=== PATIENT | male | born 1970 | race Caucasian/White ===

== ENCOUNTER 2017-06-08 22:11 | Emergency (ER) | payer OTHER ==
[2017-06-08] MEDS ORDERED: Sodium Chloride 0.9% 10 ML Syringe FLUSH PRN (22:13)
[2017-06-08] MEDS ORDERED: Nitroglycerin 0.4 MG Tab.SL SL ONE (22:15)
[2017-06-08] MEDS ORDERED: GI Cocktail Oral Solution 30 ML PO ONE (22:18)
[2017-06-08 22:42] LABS: CHLORIDE,CL 104 mmol/L (98-107); SODIUM,NA 139 mmol/L (136-145)
[2017-06-08] MEDS ORDERED: Pantoprazole 40 MG Vial IVPUSH ONE (23:30)
--- NOTE | 2017-06-09 | EDM.PDOC ---
ED HPI GENERAL MEDICAL PROBLEM - General Chief Complaint: Chest Pain Stated Complaint: chest pain Time Seen by Provider: 06/08/17 22:12 Source of Information: Reports: Patient History Limitations: Reports: No Limitations - History of Present Illness INITIAL COMMENTS - FREE TEXT/NARRATIVE: Patient comes to ER complaining of central chest pain. Points to epigastric area as site of pain. No radiation of pain, but says that intermittently he feels 'numb' in neck and right arm. Pain comes and goes, can be sharp, crampy. Eating and drinking make it worse. Laying down makes it worse, sitting straight up makes it better. Has not been able to burp. Breathing can make pain feel worse and gives a SOB sensation at times. No family history of CAD/LA. Patient denies any significant family history. Patient denies cardiac history. No fevers. Non-smoker. Has been diagnosed with hiatal hernia and GERD. Had similar episode several years ago. Denies other GI changes such as nausea/emesis/loose stools/constipation Chest Pain Score (Numeric/FACES): 5 - Related Data Allergies Allergy/AdvReac Type Severity Reaction Status Date / Time metaxalone [From Skelaxin] Allergy Rash Verified 06/08/17 22:12 Home Meds: Home Meds Albuterol [Proventil HFA] 2 puff INH Q4H PRN #1 inhaler 06/04/14 [Rx] Budesonide/Formoterol [Symbicort 160-4.5 MCG] 1 puff INH DAILY 06/08/17 [History ] FLUoxetine HCl [Fluoxetine HCl] 10 mg PO DAILY 06/08/17 [History] Ibuprofen 1,000 mg PO DAILY 06/08/17 [History] Loratadine [Claritin] 10 mg PO DAILY 06/08/17 [History] Omeprazole 20 mg PO DAILY 06/08/17 [History] Sucralfate [Carafate] 1 tab PO TIDAC 06/08/17 [History] buPROPion HCl [Wellbutrin Xl] 300 mg PO DAILY 06/08/17 [History] Past Medical History Cardiovascular History: Reports: Hypertension Respiratory History: Reports: Asthma Gastrointestinal History: Reports: GERD, Hiatal Hernia Psychiatric History: Reports: Anxiety, Depression Endocrine/Metabolic History: Reports: Obesity/BMI 30+ Social & Family History - Tobacco Use Smoking Status *Q: Current Every Day Smoker Years of Tobacco use: 30 Used Tobacco, but Quit: No Second Hand Smoke Exposure: No - Alcohol Use Days Per Week of Alcohol Use: 2 Number of Drinks Per Day: 2 Total Drinks Per Week: 4 - Recreational Drug Use Recreational Drug Use: Yes Drug Use in Last 12 Months: No Recreational Drug Type: Reports: Marijuana/Hashish Recreational Drug Use Frequency: Not Used In Over 6 Months Recreational Drug Last Use: 3 sodas per day, 2 cups of coffee per day - Living Situation & Occupation Living situation: Reports: Occupation: Employed ED ROS GENERAL - Review of Systems Review Of Systems: See Below Constitutional: Reports: Diaphoresis, Decreased Appetite. Denies: Fever, Chills , Malaise, Weakness, Fatigue, Night Sweats, Weight Loss, Weight Gain HEENT: Reports: No Symptoms Respiratory: Reports: Other (breathing makes epigastric discomfort worse at times. ). Denies: Shortness of Breath, Wheezing, Pleuritic Chest Pain, Cough, Sputum, Hemoptysis Cardiovascular: Reports: Chest Pain. Denies: Dyspnea on Exertion, Edema, Lightheadedness, Orthopnea, Palpitations, PND, Syncope Endocrine: Reports: No Symptoms GI/Abdominal: Reports: Abdominal Pain (epigastric pain), Decreased Appetite. Denies: Anorexia, Black Stool, Bloody Stool, Constipation, Diarrhea, Difficulty Swallowing, Distension, Hematemesis, Hematochezia, Nausea, Vomiting : Reports: No Symptoms Musculoskeletal: Reports: No Symptoms Skin: Reports: No Symptoms Neurological: Reports: No Symptoms Psychiatric: Reports: No Symptoms Hematologic/Lymphatic: Reports: No Symptoms ED EXAM, GENERAL - Physical Exam Exam: See Below Exam Limited By: No Limitations General Appearance: Alert, WD/WN, Moderate Distress, Obese Eye Exam: Bilateral Eye: EOMI, PERRL Ears: Normal External Exam, Normal Canal, Hearing Grossly Normal, Normal TMs Nose: Normal Inspection, Normal Mucosa, No Blood Throat/Mouth: Normal Inspection, Normal Lips, Normal Teeth, Normal Gums, Normal Oropharynx, Normal Voice, No Airway Compromise Head: Atraumatic, Normocephalic Neck: Normal Inspection, Supple, Non-Tender, Full Range of Motion. No: Carotid Bruit, Lymphadenopathy (L), Lymphadenopathy (R) Respiratory/Chest: No Respiratory Distress, Lungs Clear, Normal Breath Sounds, No Accessory Muscle Use, Chest Non-Tender Cardiovascular: Normal Peripheral Pulses, Regular Rate, Rhythm, No Edema, No Murmur Peripheral Pulses: 2+: Radial (L), Radial (R), Dorsalis Pedis (L), Dorsalis Pedis (R) GI/Abdominal: Normal Bowel Sounds, Soft, No Distention, Tender (epigastrum). No : Guarding, Rigid, Rebound (Male) Exam: Deferred Rectal (Males) Exam: Deferred Back Exam: Normal Inspection, Full Range of Motion. No: CVA Tenderness (L), CVA Tenderness (R), Paraspinal Tenderness, Vertebral Tenderness Extremities: Normal Inspection, Normal Range of Motion, Non-Tender, No Pedal Edema, Normal Capillary Refill Neurological: Alert, Oriented, Normal Cognition, Normal Gait, Normal Reflexes, No Motor/Sensory Deficits Psychiatric: Normal Affect, Normal Mood Skin Exam: Warm, Dry, Intact, Normal Color EKG INTERPRETATION EKG Date: 06/08/17 Time: 22:07 Rhythm: NSR Rate (Beats/Min): 69 [place]: Normal P-Wave: Present QRS: Normal ST-T: Normal QT: Normal Comparison: No Change Course - Vital Signs Last Recorded V/S: Last Vital Signs Temp Pulse Resp BP 146/94 H 06/08/17 22:25 Pulse Ox - Orders/Labs/Meds Orders: Active Orders 24 hr Category Date Time Status EKG Documentation Completion [RC] ASDIRECTED Care 06/08/17 22:15 Active Abdomen 2V AP Flat Upright [CR] Stat Exams 06/08/17 22:13 Taken Chest 2V [CR] Stat Exams 06/08/17 22:13 Taken Sodium Chloride 0.9% [Saline Flush] Med 06/08/17 22:13 Active 10 ml FLUSH ASDIRECTED PRN Saline Lock Insert [OM.PC] Stat Oth 06/08/17 22:13 Ordered Medication Orders Sodium Chloride (Saline Flush) 10 ml FLUSH ASDIRECTED PRN PRN Reason: Keep Vein Open Labs: Laboratory Tests 06/08/17 06/08/17 06/08/17 Range/Units 22:10 22:10 22:10 WBC 11.3 H (4.0-10.2) K/uL RBC 4.99 (4.33-5.41) M/uL Hgb 14.7 (13.1-16.8) g/dL Hct 43.7 (39.0-49.0) % MCV 87.6 D (84.0-98.0) fL MCH 29.5 (28.2-33.3) pg MCHC 33.6 (31.7-36.0) g/dL RDW 14.2 H (11.2-14.1) % Plt Count 328 D (150-350) K/uL Neut % (Auto) 55.3 (45.0-80.0) % Lymph % (Auto) 32.2 (10.0-50.0) % [place] % (Auto) 10.2 (2.0-14.0) % Eos % (Auto) 1.9 (0.0-5.0) % Baso % (Auto) 0.4 (0.0-2.0) % Neut # (Auto) 6.25 (1.40-7.00) K/uL Lymph # (Auto) 3.65 H (0.50-3.50) K/uL [place] # (Auto) 1.15 H (0.00-1.00) K/uL Eos # (Auto) 0.22 (0.00-0.50) K/uL Baso # (Auto) 0.05 (0.00-0.20) K/uL D-Dimer, Quantitative < 100 (0-400) ng/mL Sodium 139 (136-145) mmol/L Potassium 4.1 (3.5-5.1) mmol/L Chloride 104 (98-107) mmol/L Carbon Dioxide 24.9 (21.0-32.0) mmol/L BUN 21 H (7-18) mg/dL Creatinine 1.03 (0.51-1.17) mg/dL Est Cr Clr Drug Dosing 90.56 mL/min Estimated GFR (MDRD) > 60 mL/min Glucose 114 H (74-106) mg/dL Calcium 8.7 (8.5-10.1) mg/dL Total Bilirubin 0.3 (0.2-1.0) mg/dL AST 20 (15-37) U/L ALT 35 (12-78) U/L Alkaline Phosphatase 88 (46-116) IU/L Creatine Kinase 258 (26-308) U/L Creatine Kinase Index 0.1 (0.0-2.5) % CK-MB (CK-2) 0.30 (0.00-3.60) ng/mL Troponin I 0.000 (0.000-0.056) ng/mL Total Protein 7.6 (6.4-8.2) g/dL Albumin 3.8 (3.4-5.0) g/dL Specimen Type Urine Color Urine Appearance Urine pH (5.0-9.0) Ur Specific [place] (1.005-1.030) Urine Protein (NEGATIVE) mg/dL Urine Glucose (UA) (NEGATIVE) mg/dL Urine Ketones (NEGATIVE) mg/dL Urine Occult Blood (NEGATIVE) Urine Nitrite (NEGATIVE) Urine Bilirubin (NEGATIVE) Urine Urobilinogen (0.2-1.0) E.U./dL Ur Leukocyte Esterase (NEGATIVE) Urine RBC /HPF Urine WBC /HPF Ur Epithelial Cells /LPF Urine Bacteria (NONE TO FEW) /HPF 06/08/17 Range/Units 22:40 WBC (4.0-10.2) K/uL RBC (4.33-5.41) M/uL Hgb (13.1-16.8) g/dL Hct (39.0-49.0) % MCV (84.0-98.0) fL MCH (28.2-33.3) pg MCHC (31.7-36.0) g/dL RDW (11.2-14.1) % Plt Count (150-350) K/uL Neut % (Auto) (45.0-80.0) % Lymph % (Auto) (10.0-50.0) % [place] % (Auto) (2.0-14.0) % Eos % (Auto) (0.0-5.0) % Baso % (Auto) (0.0-2.0) % Neut # (Auto) (1.40-7.00) K/uL Lymph # (Auto) (0.50-3.50) K/uL [place] # (Auto) (0.00-1.00) K/uL Eos # (Auto) (0.00-0.50) K/uL Baso # (Auto) (0.00-0.20) K/uL D-Dimer, Quantitative (0-400) ng/mL Sodium (136-145) mmol/L Potassium (3.5-5.1) mmol/L Chloride (98-107) mmol/L Carbon Dioxide (21.0-32.0) mmol/L BUN (7-18) mg/dL Creatinine (0.51-1.17) mg/dL Est Cr Clr Drug Dosing mL/min Estimated GFR (MDRD) mL/min Glucose (74-106) mg/dL Calcium (8.5-10.1) mg/dL Total Bilirubin (0.2-1.0) mg/dL AST (15-37) U/L ALT (12-78) U/L Alkaline Phosphatase (46-116) IU/L Creatine Kinase (26-308) U/L Creatine Kinase Index (0.0-2.5) % CK-MB (CK-2) (0.00-3.60) ng/mL Troponin I (0.000-0.056) ng/mL Total Protein (6.4-8.2) g/dL Albumin (3.4-5.0) g/dL Specimen Type Urinvoid Urine Color Yellow Urine Appearance Clear Urine pH 5.5 (5.0-9.0) Ur Specific [place] >= 1.030 (1.005-1.030) Urine Protein Trace H (NEGATIVE) mg/dL Urine Glucose (UA) 250 H (NEGATIVE) mg/dL Urine Ketones Negative (NEGATIVE) mg/dL Urine Occult Blood Negative (NEGATIVE) Urine Nitrite Negative (NEGATIVE) Urine Bilirubin Negative (NEGATIVE) Urine Urobilinogen 0.2 (0.2-1.0) E.U./dL Ur Leukocyte Esterase Negative (NEGATIVE) Urine RBC 0-5 /HPF Urine WBC 0-5 /HPF Ur Epithelial Cells Rare /LPF Urine Bacteria Rare (NONE TO FEW) /HPF Meds: Medications Generic Name Dose Route Start Last Admin Trade Name Freq PRN Reason Stop Dose Admin Sodium Chloride 10 ml 06/08/17 22:13 Saline Flush FLUSH ASDIRECTED PRN Keep Vein Open Discontinued Medications Generic Name Dose Route Start Last Admin Trade Name Freq PRN Reason Stop Dose Admin Al Hydroxide/Mg Hydroxide 30 ml 06/08/17 22:18 06/08/17 22:41 Gi Cocktail PO 06/08/17 22:19 30 ml ONETIME ONE Administration Nitroglycerin 0.4 mg 06/08/17 22:15 06/08/17 22:25 Nitrostat SL 06/08/17 22:16 0.4 mg ONETIME ONE Administration Pantoprazole Sodium Confirm 06/09/17 00:14 Protonix Iv Administered 06/09/17 00:15 Dose 40 mg .ROUTE .STK-MED ONE - Radiology Interpretation Free Text/Narrative:: Chest xray did not show pneumothorax. Heart normal size. No focal infiltrates. Some mild changes suggestive of atelectasis/fibrosis. Abdominal film shows diffuse stool throughout. No sign of obstruction. - Re-Assessments/Exams Free Text/Narrative Re-Assessment/Exam: 06/09/17 00:40 Nitro given. Some reduction in pain noted. GI cocktail then given and patient had complete resolution of pain. EKG unremarkable for ischemia. DDimer/CKMB/Troponin negative. Suspect GI cause for pain. Long discussion with patient concerning dietary triggers for GERD and avoidance of future episodes similar to today's. Patient refused to stay for cardiac rule out protocol, however at this time differential diagnosis strongly favors GERD/Hiatal Hernia as source of pain. Extensive precautions reviewed prior to discharge. Patient is comfortable with plan and agrees to return if pain returns. Departure - Departure Time of Disposition: 23:56 Disposition: Home, Self-Care 01 Condition: Good Clinical Impression: Epigastric pain, Hiatal hernia GERD (gastroesophageal reflux disease) Qualifiers: Esophagitis presence: esophagitis presence not specified Qualified Code(s): K21.9 - Gastro-esophageal reflux disease without esophagitis Instructions: Indigestion, [id number], Hiatal Hernia Referrals: Hallie Ann PA [Primary Care Provider] - Forms: ED Department Discharge, ED Return to Work/School Form Additional Instructions: Follow up as needed if pain/problems return Strongly recommend dietary changes as discussed to help avoid triggering new episodes of heartburn and similar pain. Follow up with your primary provider as needed. - My Orders Last 24 Hours: My Active Orders 06/08/17 22:13 Abdomen 2V AP Flat Upright [CR] Stat Chest 2V [CR] Stat Sodium Chloride 0.9% [Saline Flush] 10 ml FLUSH ASDIRECTED PRN Saline Lock Insert [OM.PC] Stat 06/08/17 22:15 EKG Documentation Completion [RC] ASDIRECTED - Assessment/Plan Last 24 Hours: My Active Orders 06/08/17 22:13 Abdomen 2V AP Flat Upright [CR] Stat Chest 2V [CR] Stat Sodium Chloride 0.9% [Saline Flush] 10 ml FLUSH ASDIRECTED PRN Saline Lock Insert [OM.PC] Stat 06/08/17 22:15 EKG Documentation Completion [RC] ASDIRECTED
[2017-06-09] MEDS ORDERED: Pantoprazole 40 MG Vial ONE (00:14)
[2017-06-09 01:27] VITALS: BP 123/83
== END 2017-06-09 00:27 | disposition home or self-care (01) ==
LOC: LL.ED 22:11
DX: K44.9 Diaphragmatic hernia without obstruction or gangrene (principal); K21.9 Gastro-esophageal reflux disease without esophagitis; I10 Essential (primary) hypertension; J45.909 Unspecified asthma, uncomplicated; F41.9 Anxiety disorder, unspecified; F32.9 Major depressive disorder, single episode, unspecified; E66.9 Obesity, unspecified; F17.210 Nicotine dependence, cigarettes, uncomplicated; Z79.899 Other long term (current) drug therapy; Z68.41 Body mass index [BMI] 40.0-44.9, adult
CPT/HCPCS: 36415; 71020; 74020; 80053; 81001; 82550; 82553; 84484; 85025; 85379; 93005; 96374; 99285; A9270; C9113; J7050